=== PATIENT | female | born 1990 | race African-American/Black ===

== ENCOUNTER 2017-05-21 00:44 | Emergency (ER) | payer BC, OTHER ==
[2017-05-21] MEDS ORDERED: AMOXICILLIN 500 MG CAPSULE (FP) PO ONE (02:32)
[2017-05-21] MEDS ORDERED: ACETAMINOPHEN 325 MG TABLET (FP) PO ONE (02:32)
[2017-05-21] MEDS ORDERED: diphenhydrAMINE HCL 25 MG CAPSULE (FP) PO ONE ×2 (02:32→02:38)
[2017-05-21] MEDS ORDERED: ACETAMINOPHEN 325 MG TABLET (FP) ONE (02:38)
[2017-05-21] MEDS ORDERED: AMOXICILLIN 500 MG CAPSULE (FP) ONE (02:40)
--- NOTE | 2017-05-21 02:45 | PDOC ---
History of Present Illness - General History Source: Patient <Florentino Medina - Last Filed: 05/21/17 02:31> - General Exam Limitations: No Limitations - History of Present Illness Initial Comments: 05/21/17 03:06 Patient is a 27 year old female, 9 weeks , with a significant past medical history of who presents to the ED complaints of general body aches that began 4 days ago. Patient reports experiencing general body aches that began 4 days ago while at home. She reports experiencing occasional productive cough recently but does not know if it is related to her body aches. 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 Denies vaginal bleeding, pelvic cramps. Denies nausea, vomiting. Denies contact with sick individuals, out of state travel. Denies any other symptoms. Allergies: None Social history: No smoking. No alcohol. No illicit drugs. Surgical history: None PMD: Dr. Do. 05/21/17 03:27 <Rohan Engel - Last Filed: 05/21/17 03:27> - General Chief Complaint: Pain Stated Complaint: 9 WEEKS HEADACHE Time Seen by Provider: 05/21/17 02:20 Past History - Past Medical History COPD: No Other medical history: Pt denies - Suicide/Smoking/Psychosocial Hx Smoking History: Never smoked Have you smoked in the past 12 months: No Information on smoking cessation initiated: No Hx Alcohol Use: No Drug/Substance Use Hx: No Substance Use Type: None <AdamFlorentino - Last Filed: 05/21/17 02:31> <Rohan Engel - Last Filed: 05/21/17 03:27> - Past Medical History Allergies/Adverse Reactions: Allergies Allergy/AdvReac Type Severity Reaction Status Date / Time No Known Allergies Allergy Verified 05/21/17 01:32 Home Medications: Ambulatory Orders Acetaminophen [Tylenol] 650 mg PO QID #30 tablet 05/21/17 Amoxicillin - [Amoxicillin 875mg Tablet -] 875 mg PO BID #14 tab 05/21/17 Diphenhydramine HCl [Benadryl Capsules -] 25 mg PO TID #30 capsule 05/21/17 Review of Systems - Review of Systems Able to Perform ROS?: Yes Comments:: 05/21/17 03:06 CONSTITUTIONAL: +General Body ache. Absent: fever, no chills, EYES: Absent: visual changes ENT: Absent: ear pain, no sore throat CARDIOVASCULAR: Absent: chest pain, no palpitations RESPIRATORY: +Cough Absent: no SOB GI: Absent: abdominal pain, no nausea, no vomiting, no constipation, no diarrhea GENITOURINARY: Absent: dysuria, no frequency, no hematuria MUSCULOSKELETAL: Absent: back pain, no arthralgia, no myalgia SKIN: Absent: rash All Other Systems: Reviewed and Negative <Rohan Engel - Last Filed: 05/21/17 03:27> *Physical Exam - Vital Signs Last Vital Signs Temp Pulse Resp BP Pulse Ox 98.5 F 98 H 20 114/66 100 05/21/17 01:33 05/21/17 01:33 05/21/17 01:33 05/21/17 01:33 05/21/17 01:33 <Florentino Medina - Last Filed: 05/21/17 02:31> - Vital Signs Last Vital Signs Temp Pulse Resp BP Pulse Ox 98.5 F 98 H 20 114/66 100 05/21/17 01:33 05/21/17 01:33 05/21/17 01:33 05/21/17 01:33 05/21/17 01:33 - Physical Exam Comments: 05/21/17 03:06 GENERAL: Well-appearing, well-nourished. No apparent distress. HEENT: +Nasal Congestion. Normocephalic, atraumatic. PERRL, EOM intact. CARDIOVASCULAR: Normal S1, S2. Regular rate and rhythm. PULMONARY: Clear to auscultation bilaterally. ABDOMEN: Soft, non-distended, non-tender. EXTREMITIES: Normal ROM in all four extremities. No gross deformities. SKIN: Warm, dry. No rash NEUROLOGICAL: No focal neurological deficits. <Rohan Engel - Last Filed: 05/21/17 03:27> ED Treatment Course - Medications Given in the ED: ED Medications Discontinued Medications Generic Name Dose Route Start Last Admin Trade Name Freq PRN Reason Stop Dose Admin Acetaminophen 650 mg 05/21/17 02:32 05/21/17 02:43 Tylenol - PO 05/21/17 02:33 650 mg ONCE ONE Administration Amoxicillin 500 mg 05/21/17 02:32 05/21/17 02:43 Amoxicillin - PO 05/21/17 02:33 500 mg ONCE ONE Administration Diphenhydramine HCl 25 mg 05/21/17 02:32 05/21/17 02:43 Benadryl - PO 05/21/17 02:33 25 mg ONCE ONE Administration <Rohan Engel - Last Filed: 05/21/17 03:27> Medical Decision Making - Medical Decision Making 05/21/17 02:44 Dr. Medina: The scribe's documentation has been prepared under my direction and personally reviewed by me in its entirery. I confirm that the note above accurately reflects all work, treatment, procedures, and medical decision making performed by me. <Florentino Medina - Last Filed: 05/21/17 02:31> *DC/Admit/Observation/Transfer - Discharge Dispostion Admit: No <Florentino Medina - Last Filed: 05/21/17 02:31> - Attestations Scribe Attestion: 05/21/17 03:06 Documentation prepared by Rohan Engel, acting as director medical surgical for Florentino Medina MD/DO. <Rohan Engel - Last Filed: 05/21/17 03:27> Diagnosis at time of Disposition: Upper respiratory infection Qualifiers: URI type: unspecified URI Qualified Code(s): J06.9 - Acute upper respiratory infection, unspecified Qualifiers: Weeks of gestation: 9 weeks Qualified Code(s): Z3A.09 - 9 weeks gestation of - Discharge Dispostion Disposition: HOME Condition at time of disposition: Stable - Prescriptions Prescriptions: Acetaminophen [Tylenol] 650 mg PO QID #30 tablet Amoxicillin - [Amoxicillin 875mg Tablet -] 875 mg PO BID #14 tab Diphenhydramine HCl [Benadryl Capsules -] 25 mg PO TID #30 capsule - Referrals Referrals: David Do MD [Primary Care Provider] - - Patient Instructions Printed Discharge Instructions: DI for Viral Upper Respiratory Infection -- Adult Additional Instructions: Please follow up with your financial planning adviser in the next few days for evaluation of . Take medication as directed. Drink plenty of fluids and have plenty of bed rest. Return if nay problems. - Post Discharge Activity
[2017-05-21 03:06] VITALS: BP 114/66; PULSE 98; TEMP 98.5; BMI 37.5
== END 2017-05-21 03:09 | disposition home or self-care (01) ==
LOC: JER 00:44
DX: O99.89 Other specified diseases and conditions complicating pregnancy, childbirth and the puerperium (principal); J06.9 Acute upper respiratory infection, unspecified; Z3A.09 9 weeks gestation of pregnancy
CPT/HCPCS: 99281-25